=== PATIENT | female | born 1975 | race Caucasian/White ===

== ENCOUNTER 2017-03-24 10:30 | Emergency (ER) | payer MEDICAID ==
[2017-03-24 14:53] VITALS: BP 124/77
== END 2017-03-24 14:53 | disposition home or self-care (01) ==
LOC: ED 10:30
DX: M25.572 Pain in left ankle and joints of left foot (principal)
CPT/HCPCS: Q0092

== ENCOUNTER 2018-12-26 08:44 | Emergency (ER) | payer MEDICAID ==
[~2018-12-26] VITALS: Ht 162.6 cm; Wt 100.7 kg
[2018-12-26 08:47] VITALS: BP 141/94; Ht 162.6 cm; Wt 100.7 kg
== END 2018-12-26 09:20 | disposition home or self-care (01) ==
LOC: ED 08:44
DX: R30.0 Dysuria (principal); M32.9 Systemic lupus erythematosus, unspecified; M06.9 Rheumatoid arthritis, unspecified; Z88.6 Allergy status to analgesic agent

== ENCOUNTER 2019-06-21 08:59 | Emergency (ER) | payer MEDICAID ==
[~2019-06-21] VITALS: Ht 162.6 cm; Wt 101.6 kg
[2019-06-21 09:15] VITALS: Ht 162.6 cm; Wt 101.6 kg
[2019-06-21 11:46] VITALS: BP 142/84
== END 2019-06-21 11:46 | disposition home or self-care (01) ==
LOC: ED 08:59
DX: J06.9 Acute upper respiratory infection, unspecified (principal); Z88.6 Allergy status to analgesic agent; M06.9 Rheumatoid arthritis, unspecified

== ENCOUNTER 2020-02-29 08:36 | Emergency (ER) | payer MEDICAID, SELFPAY ==
[~2020-02-29] VITALS: Ht 162.6 cm; Wt 81.6 kg
[2020-02-29 08:40] VITALS: Ht 162.6 cm; Wt 81.6 kg
[2020-02-29 09:02] VITALS: BP 138/92
== END 2020-02-29 09:02 | disposition home or self-care (01) ==
LOC: ED 08:36
DX: U07.1 COVID-19 (principal); M06.9 Rheumatoid arthritis, unspecified; Z88.6 Allergy status to analgesic agent
CPT/HCPCS: U0003-CS